=== PATIENT | female | born 1985 | race Caucasian/White ===

== ENCOUNTER 2017-05-01 13:10 | Inpatient (IN) | payer MEDICAID ==
[2017-05-01 13:55] LABS: APPEARANCE,URINE SLIGHTLY-CLOUDY; BILIRUBIN,URINE NEGATIVE (NEGATIVE); GLUCOSE, URINE NEGATIVE (NEGATIVE); KETONES,URINE NEGATIVE (NEGATIVE); LEUKOCYTE ESTERASE,URINE NEGATIVE (NEGATIVE); NITRITE,URINE NEGATIVE (NEGATIVE); PROTEIN,URINE NEGATIVE (NEGATIVE); URINE SPECIFIC GRAVITY 1.011; UROBILINOGEN,URINE NEGATIVE mg/dL (<2.0)
[2017-05-01 14:26] LABS: URINE BARBITURATES SCREEN NEGATIVE; URINE METHADONE SCREEN NEGATIVE; URINE OPIATES LOW NEGATIVE; URINE PHENCYCLIDINE SCREEN NEGATIVE
--- NOTE | 2017-05-01 14:27 | Non Stress Test Report ---
Non Stress Test Datetime Report Generated by CPN: 05/01/2017 14:27 DEMOGRAPHIC EGA NST: 40.1 INDICATION Indication for Study: Ordered by Provider; Other Indication for Study (NST) Other: Labor check, contractions MONITORING Monitor Explained: Monitor Explained; Test Explained; Patient Verbalized Understanding Time on Monitor: 05/01/2017 13:28 Time off Monitor: 05/01/2017 13:56 NST Duration: 28 NST INTERVENTIONS NST Interventions: None Physician Notified NST: Dr. Mayorga BABY A: [id number] BABY A Movement : Present Contraction Frequency : 2-6 FHR Baseline : 125 Accelerations : 15X15 Decelerations : None Variability : Moderate 6-25bpm NST Review: Meets Criteria for Reactive NST NST Review and Verified By : Romaine Ring RN NST Results: Reactive NST REPORT Report Trigger: Send Report
[2017-05-01 15:41] LABS: HEMATOCRIT 35.9 % (36.0-47.0); HEMOGLOBIN 11.9 g/dL (12.0-15.5); HGB HCT DIFFERENCE -0.2; MEAN CORPUSCULAR HGB CONC 33.1 g/dL (32.0-36.0); MEAN CORPUSCULAR VOLUME 88 fl (80-97); RED CELL DISTRIBUTION WIDTH 16.2 % (11.5-14.0); WHITE BLOOD COUNT 20.4 10^3/uL (4.0-10.5)
[2017-05-01 15:57] LABS: BASOPHILS % (MANUAL) 0 % (0-2); EOSINOPHILS % (MANUAL) 0 % (0-6); LYMPHOCYTES % (MANUAL) 22 % (13-45); TOTAL CELLS COUNTED 100
[2017-05-01 15:58] LABS: ANISOCYTOSIS 1+; HYPOCHROMASIA SLIGHT; OVALOCYTES SLIGHT; POIKILOCYTOSIS SLIGHT; TOXIC GRANULATION SLIGHT
[2017-05-01] MEDS ORDERED: MISOPROSTOL 0.2 MG TABLET PR PRN (17:42)
[2017-05-01] MEDS ORDERED: LIDOCAINE 1% INJ-PF (10 MG/ML) 30 ML SDV INJ PRN (17:42)
[2017-05-01] MEDS ORDERED: NALBUPHINE HCL INJ 10 MG/1 ML AMPULE IV ONE (17:42)
[2017-05-01] MEDS ORDERED: OXYTOCIN/NORMAL SALINE 1,000 ML IV PRN (17:42)
[2017-05-01] MEDS ORDERED: MISOPROSTOL 0.2 MG TABLET ONE (17:48)
[2017-05-01] MEDS ORDERED: NALBUPHINE HCL INJ 10 MG/1 ML AMPULE ONE (17:48)
[2017-05-01] MEDS ORDERED: OXYTOCIN/NORMAL SALINE 20 UNIT/1,000 ML RTUINJ ONE (17:49)
[2017-05-01] MEDS ORDERED: LIDOCAINE 1% INJ-PF (10 MG/ML) 30 ML SDV ONE (17:49)
--- NOTE | 2017-05-01 17:50 | L&D Progress Notes ---
PROGRESS NOTES Datetime Report Generated by CPN: 05/01/2017 17:50 PROGRESS NOTE Impression: Normal Progression of Labor Procedures: Sterile Vag Exam Plan: Continue Present Management Informed Consent Obtained: Vaginal Delivery; Risks, Benefits and Alternatives Discussed Vital Signs : Reviewed; Within Normal Limits Comment: Membranes spontaneously ruptured at 1455. Cvx now /-2. Will continue with management currently may need pitocin augmentation if no cervical change on next eval. pelvis adequate for ERMA. pelvis proven to 5#12oz. VAGINAL EXAM Dilatation: 3 Effacement: 70 Station: -3 MEMBRANES Membranes: Ruptured FETUS A FHR - Baseline: 120 Monitoring: External US Variability: Moderate 6-25bpm Accelerations: 15X15 Decelerations: None FHR Category: Category I Presentation: Vertex SIGNATURE SIGNATURE: [id number];[id number] SIGNATURE: [id number] Signature: with User ID: [email or web address]
[2017-05-01] MEDS ORDERED: FENTANYL CITRATE INJ/PF 100 MCG/2 ML AMPUL ONE ×2 (20:07→22:05)
[2017-05-01] MEDS ORDERED: FENTANYL CITRATE INJ/PF 100 MCG/2 ML AMPUL IV ONE (20:09)
[2017-05-01] MEDS ORDERED: EPHEDRINE SULFATE INJ 50 MG/1 ML AMPULE ONE (22:05)
[2017-05-01] MEDS ORDERED: PHENYLEPHRINE HCL INJ/PF 10 MG/1 ML SDV ONE (22:05)
[2017-05-01] MEDS ORDERED: BUPIVACAINE HCL 0.25 % INJ/PF (2.5 MG/1 ML) 30 ML VIAL ONE (22:06)
[2017-05-01] MEDS ORDERED: FENTANYL/BUPIVACAINE/NS/PF 200 MCG/100 ML RTUINJ EPI ONE (22:06)
--- NOTE | 2017-05-01 22:06 | L&D Progress Notes ---
PROGRESS NOTES Datetime Report Generated by CPN: 05/01/2017 22:06 PROGRESS NOTE Impression: Normal Progression of Labor Procedures: Sterile Vag Exam Plan: Continue Present Management; Augmentation Informed Consent Obtained: Vaginal Delivery; Risks, Benefits and Alternatives Discussed Vital Signs : Reviewed; Within Normal Limits Comment: minimal change. reviewed recommendations for pitocin augmentation. She is concerned regarding ctx and pain. Reviewed may give 2nd dose of Nubain but it may not last for long. She would like to try epidural. Will start pitocin after epidural. Pelvis adequate for ERMA VAGINAL EXAM Dilatation: 6 Effacement: 75 Station: 0 MEMBRANES Membranes: Ruptured Amniotic Fluid Color: Clear FETUS A FHR - Baseline: 135 Monitoring: External US Variability: Moderate 6-25bpm Accelerations: 15X15 Decelerations: None FHR Category: Category I FETUS C SIGNATURE: [id number];[id number] Signature: with User ID: [email or web address]
[2017-05-01] MEDS ORDERED: OXYTOCIN/NORMAL SALINE 20 UNIT/1,000 ML RTUINJ IV PRN (23:54)
[2017-05-01] MEDS ORDERED: MAG HYDROX/AL HYDROX/SIMETH SUSP 30 ML UDCUP ONE (23:54)
[2017-05-02] MEDS ORDERED: HYDROMORPHONE HCL INJ/PF 2 MG/ML AMPULE ONE (01:12)
[2017-05-02] MEDS ORDERED: OXYTOCIN 10 UNIT/ML VIAL ONE (01:21)
[2017-05-02] MEDS ORDERED: PROMETHAZINE HCL 25 MG SUPP.RECT PR PRN (02:00)
[2017-05-02] MEDS ORDERED: OXYTOCIN/NORMAL SALINE 20 UNIT/1,000 ML RTUINJ IV PRN (02:00)
[2017-05-02] MEDS ORDERED: DIPHENHYDRAMINE HCL 25 MG CAPSULE PO PRN (02:00)
[2017-05-02] MEDS ORDERED: PROMETHAZINE HCL 25 MG TABLET PO PRN (02:00)
[2017-05-02] MEDS ORDERED: BENZOCAINE/MENTHOL AEROSOL SPRAY 56 ML TOP PRN (02:00)
[2017-05-02] MEDS ORDERED: PROMETHAZINE HCL INJ 25 MG/1 ML VIAL IV PRN (02:00)
[2017-05-02] MEDS ORDERED: ZOLPIDEM TARTRATE 5 MG TABLET PO PRN (02:00)
[2017-05-02] MEDS ORDERED: PSEUDOEPHEDRINE HCL 30 MG TABLET PO PRN (02:00)
[2017-05-02] MEDS ORDERED: ACETAMINOPHEN 650 MG SUPP.RECT PR PRN (02:00)
[2017-05-02] MEDS ORDERED: DIBUCAINE 1% OINTMENT 28 GM TP PRN (02:00)
[2017-05-02] MEDS ORDERED: DIPH/PERTUSS(ACELL)/TETANUS VAC/PF 0.5 ML SYR (>=10YO) IM PRN (02:00)
[2017-05-02] MEDS ORDERED: MEASLES,MUMPS&RUBELLA VACC/PF 0.5 ML VIAL SUBCUT PRN (02:00)
[2017-05-02] MEDS ORDERED: NA PHOS,M-B/NA PHOS,DI-BA (ADULT) 133 ML ENEMA PR PRN (02:00)
[2017-05-02] MEDS ORDERED: GLYCERIN/WITCH HAZEL LEAF 1 EACH MED..PAD TP PRN (02:00)
[2017-05-02] MEDS ORDERED: MAGNESIUM HYDROXIDE SUSP 30 ML UDCUP PO PRN (02:00)
[2017-05-02] MEDS ORDERED: OXYCODONE-ACETAMINOPHEN 5-325 MG TABLET PO PRN ×3 (02:02→07:19)
[2017-05-02] MEDS ORDERED: KETOROLAC TROMETHAMINE INJ/PF 30 MG/1 ML SDV IM ONE (02:05)
[2017-05-02] MEDS ORDERED: KETOROLAC TROMETHAMINE INJ/PF 30 MG/1 ML SDV ONE (02:18)
[2017-05-02] MEDS ORDERED: OXYCODONE-ACETAMINOPHEN 5-325 MG TABLET ONE (02:19)
--- NOTE | 2017-05-02 03:47 | Admission Physical ---
Datetime Report Generated by CPN: 05/02/2017 03:46 CURRENT ADMISSION Chief Complaint: Uterine Contractions Admit Plan: Admit to Unit; Initiate Labor Protocol ALLERGIES Medication Allergies: No Medication Allergies: No Known Allergies (05/01/2017) Medication Allergies: No Known Allergies (07/26/2013) Latex: No Latex Allergies Food Allergies: None Environmental Allergies: None OBSTETRICAL HISTORY EDC: 04/30/2017 00:00 : 4 Para: 2 Term: 2 : 0 SAB: 1 IAB: 0 Ectopic: 0 Livin Cesareans: 0 VBACs: 0 Multiple Births: 0 Gestational Diabetes: No Rh Sensitization: No Incompetent Cervix: No VELIA: No Infertility: No ART Treatment: No Uterine Anomaly: No IUGR: No Hx Previous C/S: No Macrosomia: No Hx Loss/Stillborn: No PIH: No Hx : No Placenta Previa/Abruption: No Depression/PP Depression: No PTL/PROM: No Post Hemorrhage: No Current Procedures: Ultrasound Obstetrical History Comments: G1 - 2010 - at 39wks, 5lbs 11oz G2 2012 - SAB G3 2013 - at 38wks, 5lbs 12oz SEE RECORDS Alcohol: No Marijuana : No Cocaine: No Other Illicit Drugs: No Cigarettes: Current Everyday Smoker. [id number] MEDICAL HISTORY Diabetes: No Blood Transfusion: No Pulmonary Disease (Asthma, TB): No Breast Disease: No Hypertension: No Buckle Sorter Surgery: No Heart Disease: No Hosp/Surgery: No Autoimmune Disorder: No Anesthetic Complications: No Kidney Disease: No Abnormal Pap Smear: No Neuro/Epilepsy: No Psychiatric Disorders: No Other Medical Diseases: No Hepatitis/Liver Disease: No Significant Family History: No Varicosities/Phlebitis: No Trauma/Violence : No Thyroid Dysfunction: No Medical History Comments: Insulin resistance - on Metformin tonsilectomy INFECTIOUS HISTORY Gonorrhea: No Genital Herpes: No Chlamydia: No Tuberculosis: No Syphilis: No Hepatitis: No HIV/AIDS Exposure: No Rash or Viral Illness: No HPV: Yes Infectious History Comments: ACSUS pap +HPV, colpo results negative (Annotations: Data stored by [facility] on behalf of user) PHYSICAL EXAM General: Normal HEENT: Normal Neurologic: Normal Thyroid: Normal Heart: Normal Lungs: Normal Breast: Deferred Back: Normal Abdomen: Normal Genitourinary Exam: Normal Extremities: Normal DTRs: Normal Pelvic Type: Adequate Vital Signs: Reviewed; Within Normal Limits VAGINAL EXAM Dilatation: 6 Dilatation: 3 Effacement: 75 Effacement: 70 Station: 0 Station: -3 MEMBRANES Membranes: Ruptured Membranes: Ruptured Amniotic Fluid Color: Clear FETUS A EGA: 40.1 Monitoring: External US FHR- Baseline: 120 Variability: Moderate 6-25bpm Accelerations: 15X15 Decelerations: None FHR Category: Category I Presentation: Vertex Admit Comment: 31yo at 40+1ega presents for regular uterine ctx. cvx 1cm in office a couple of days ago and now 3-4 with h/o precipitous labor. GBS negative - no need for GBS prophy. Pt with large right ovarian cyst 6.5 x 5.5 x 6.5cm. Pt with Insulin resistance on Metformin - normal GTT early and at 28wks. Anticpate . Pelvis proven to 5#12oz. Augment labor if needed. CAT I FHR tracing and reassuring FWB. PLANS FOR LABOR AND DELIVERY Labor and Delivery: None Pain Management: Natural Feeding Preference: Formula Benefit of Breast Feed Discussed: Yes Circumcision: N/A INFORMED CONSENT Informed Consent Obtained: Vaginal Delivery; Risks, Benefits and Alternatives Discussed Informed Consent Obtained: Vaginal Delivery; Risks, Benefits and Alternatives Discussed Signature: with User ID: [email or web address]
--- NOTE | 2017-05-02 04:02 | Delivery Summary ---
Del Sum A-C Datetime Report Generated by CPN: 05/02/2017 04:02 DELIVERY PERSONNEL DELIVERY PERSONNEL: [id number];[id number];[id number];[id number] Delivery Doctor:: Pearl Mayorga MD Labor and Delivery Nurse:: Raven Calixto, bench mover Nurse:: Ailyn Gan RN Nursery Nurse:: Melissa Ibarra, RN Tree Worker/INSPECTOR METAL FABRICATING: Denise Elmer, ST MATERNAL INFORMATION Delivery Anesthesia: Epidural Medications After Delivery: Pitocin Drip 20 Units/1000ml NSS Maternal Complications: None Provider Comments: Terminal Bradycardia in the 80's. Cervix c/c/+2 and membranes ruptured confirmed. Bladder drained. Epidural confirmed. Pt consented for operative vaginal delivery with forceps. head position confirmed OA. Ayala Leukhart forceps applied in the usual fashion. delivered with next contraction with 2 push/pulls with good maternal effort. forceps disarticulated and c/c/+4 and infant delivered with maternal effort on the last push of the contraction. Shoulders and body delivered w/o difficulty. Cord doubly clamped and cut and to maternal Abdomen for NRP. Placenta delivered intact spontaneously. FF at U with moderate tone. IV infiltrated therefore IM pitocin and 1000mcg of misoprostol given for uterine tone. 1st degree perineal laceration repaired with good hemostasis. Apgars 8/9. Weight pending. Mother and baby stable upon provider leaving the room. LABOR SUMMARY EDC: 04/30/2017 00:00 No. Babies in Womb: 1 Attempted: No Labor Anesthesia: Epidural LABOR INFORMATION Reason for Induction: Not Applicable Onset of Labor: 05/01/2017 17:35 Complete Dilatation: 05/02/2017 00:50 Oxytocin: Augmentation Group B Beta Strep: Negative Steroids Given: None Reason Steroids Not Administered: Not Applicable MEMBRANES Membranes Rupture Method: Spontaneous Rupture of Membranes: 05/01/2017 14:55 Length of Rupture (hr): 10.17 Amniotic Fluid Color: Clear Amniotic Fluid Amount: Moderate Amniotic Fluid Odor: Normal STAGES OF LABOR Stage 1 hr: 7 Stage 1 min: 15 Stage 2 hr: 0 Stage 2 min: 15 Stage 3 hr: 0 Stage 3 min: 3 Total Time in Labor hr: 7 Total Time in Labor min: 33 VAGINAL DELIVERY Episiotomy: None Laceration Extension: First Degree Laceration Type: Perineal Laceration Repair: Yes Laceration Repair Note: 1st degree perineal laceration repaired in the usual fashion. Good hemostasis. Sponge Count Correct: Yes; Vaginal Sweep Performed Sharps Count Correct: Yes CSECTION DELIVERY Primary Indication: N/A Secondary Indication: N/A CSection Incidence: N/A Labor: N/A Elective: N/A CSection Incision: N/A BABY A INFORMATION Infant Delivery Date/Time: 05/02/2017 01:05 Method of Delivery: Vaginal Born in Route : No : N/A Forceps: Low Vacuum Extraction: N/A Shoulder Dystocia : No PRESENTATION/POSITION BABY A Presentation: Cephalic Cephalic Presentation: Vertex Vertex Position: Occipital Anterior Breech Presentation: N/A PLACENTA INFORMATION BABY A Placenta Delivery Time : 05/02/2017 01:08 Placenta Method of Delivery: Spontaneous Placenta Status: Delivered SCORES BABY A Heart Rate 1 min: >100 bpm Resp Effort 1 min: Slow, Irregular Reflex Irritability 1 min: Cough or Sneeze or Pulls Away Muscle Tone 1 min: Active Motion Color 1 min: Body [place], Extremities Blue SCORE 1 MIN: 8 Heart Rate 5 min: >100 bpm Resp Effort 5 min: Good Cry Reflex Irritability 5 min: Cough or Sneeze or Pulls Away Muscle Tone 5 min: Active Motion Color 5 min: Body [place], Extremities Blue SCORE 5 MIN: 9 INFANT INFORMATION BABY A Gestational Age at Delivery: 40.2 Gestational Status: Full Term- 39- 40.6 Weeks Infant Outcome : Liveborn Infant Condition : Stable Sex: Female IDENTIFICATION BABY A Infant Verification Date/Time: 05/02/2017 01:38 ID Band Number: [id number] Mother's Name Verified: Yes Infant RN Verifying : K Durga RN/ C [place] RN WEIGHT/LENGTH BABY A Infant Birthweight (gm): 2850 Weight (lb): 6 Infant Weight (oz): 5 Infant Length (in): 19.00 Infant Length (cm): 48.26 CORD INFORMATION BABY A No. Cord Vessels: 3 Nuchal Cord : N/A Cord Blood Taken: Yes-For Storage (Mom's Blood type +) Suction: Mouth ASSESSMENT BABY A Complications: Extended Bradycardia Physical Findings at Delivery: Within Normal Limits; Puncture Wound from Scalp Electrode Respirations: Appears Normal Skin to Skin: Yes Skin to Skin Time (min): [address] Place Change Roof Bolter/ALS Called : No Infant Care By: L Ibarra RN Transferred To: Remains with Mother SIGNATURES Signature: with User ID: [email or web address]
[2017-05-02] MEDS: IBUPROFEN 800 MG TABLET PO SCH ×3 (05:53→21:21)
[2017-05-02] MEDS: OXYCODONE-ACETAMINOPHEN 5-325 MG TABLET PO PRN ×3 (07:29→17:35)
--- NOTE | 2017-05-02 10:28 | PDOC PROGRESS REPORT ---
Subjective-OB Subjective: Post Delivery Day: 31 year old. Denies any needs at this time Doing well, OOB in room and halls, eating, bottle feeding, wearing bra, scant lochia, hsb in room holding baby Physical Exam (OB) Vital Signs: Temp Pulse Resp BP Pulse Ox 98.2 F 79 20 115/56 L 100 05/02/17 08:18 05/02/17 08:18 05/02/17 08:18 05/02/17 08:18 05/02/17 08:18 Intake & Output 05/01/17 05/02/17 05/03/17 06:59 06:59 06:59 Weight 92.75 kg - Lochia Lochia Amount: Small 10-25 ml Lochia Color: Rubra/Red - Abdomen Description: Soft Hernia Present: No Fundal Description: Firm, Midline Fundal Height: u/u - u/2 Objective-Diagnostic Laboratory: 05/01/17 15:20 05/01/17 05/01/17 05/01/17 13:17 15:20 15:20 WBC 20.4 H RBC 4.10 Hgb 11.9 L Hct 35.9 L MCV 88 MCH 29.0 MCHC 33.1 RDW 16.2 H Plt Count 483 H Seg Neutrophils % Not Reportable Lymphocytes % Not Reportable Monocytes % Not Reportable Eosinophils % Not Reportable Basophils % Not Reportable Absolute Neutrophils Not Reportable Absolute Lymphocytes Not Reportable Absolute Monocytes Not Reportable Absolute Eosinophils Not Reportable Absolute Basophils Not Reportable Urine Color YELLOW Urine Appearance SLIGHTLY-CLOUDY Urine pH 6.0 Ur Specific [place] 1.011 Urine Protein NEGATIVE Urine Glucose (UA) NEGATIVE Urine Ketones NEGATIVE Urine Blood NEGATIVE Urine Nitrite NEGATIVE Ur Leukocyte Esterase NEGATIVE Blood Type O POSITIVE Antibody Screen NEGATIVE Assessment and Plan(PN) - Assessment and Plan (1) Ovarian cyst complicating , delivered, current hospitalization Is this a current diagnosis for this admission?: Yes (3) Qualifiers: Weeks of gestation: 40 weeks Qualified Code(s): Z3A.40 - 40 weeks gestation of Is this a current diagnosis for this admission?: Yes (4) Delivery normal Is this a current diagnosis for this admission?: Yes - Time Spent with Patient Time with patient: Less than 15 minutes Medications reviewed and adjusted accordingly: Yes - Disposition Anticipated Discharge: Home Within: within 48 hours - CBC in AM
[2017-05-02] MEDS: FERROUS SULFATE 325 MG TABLET PO SCH ×2 (11:25→17:35)
[2017-05-02] MEDS: PRENATAL VITAMIN W-O CA NO5/FE FUMARATE/FA CAPSULE PO SCH (11:25)
[2017-05-02] MEDS: FAMOTIDINE 20 MG TABLET PO SCH ×2 (11:26→21:21)
[2017-05-02] MEDS: DOCUSATE SODIUM 100 MG CAPSULE PO SCH ×2 (11:26→17:36)
[2017-05-02] MEDS: SENNOSIDES/DOCUSATE 8.6-50 MG 1 EACH TABLET PO SCH (11:26)
[2017-05-03] MEDS: OXYCODONE-ACETAMINOPHEN 5-325 MG TABLET PO PRN ×3 (04:25→17:56)
[2017-05-03 05:45] LABS: HEMATOCRIT 32.8 % (36.0-47.0); HEMOGLOBIN 10.5 g/dL (12.0-15.5); HGB HCT DIFFERENCE -1.3; MEAN CORPUSCULAR HEMOGLOBIN 28.8 pg (27.0-33.4); MEAN CORPUSCULAR HGB CONC 32.2 g/dL (32.0-36.0); MEAN CORPUSCULAR VOLUME 90 fl (80-97); RED BLOOD COUNT 3.66 10^6/uL (3.72-5.28); RED CELL DISTRIBUTION WIDTH 16.7 % (11.5-14.0); WHITE BLOOD COUNT 15.5 10^3/uL (4.0-10.5)
[2017-05-03] MEDS: IBUPROFEN 800 MG TABLET PO SCH ×3 (06:12→21:10)
[2017-05-03] MEDS: FAMOTIDINE 20 MG TABLET PO SCH ×2 (09:12→21:10)
[2017-05-03] MEDS: PRENATAL VITAMIN W-O CA NO5/FE FUMARATE/FA CAPSULE PO SCH (09:12)
[2017-05-03] MEDS: DOCUSATE SODIUM 100 MG CAPSULE PO SCH ×2 (09:12→17:56)
[2017-05-03] MEDS: SENNOSIDES/DOCUSATE 8.6-50 MG 1 EACH TABLET PO SCH (09:12)
[2017-05-03] MEDS: FERROUS SULFATE 325 MG TABLET PO SCH ×2 (09:12→17:56)
--- NOTE | 2017-05-03 10:33 | PDOC PROGRESS REPORT ---
Subjective-OB Subjective: Post Delivery Day: 31 year old. Denies any needs at this time Physical Exam (OB) Vital Signs: Temp Pulse Resp BP Pulse Ox 98.0 F 88 15 114/48 L 100 05/03/17 08:15 05/03/17 08:15 05/03/17 08:15 05/03/17 08:15 05/03/17 08:15 Intake & Output 05/02/17 05/03/17 05/04/17 06:59 06:59 06:59 Intake Total 400 Balance 400 Weight 92.75 kg - PIH/Pre-Eclampsia Headache: Absent - Lochia Lochia Amount: Small 10-25 ml Lochia Color: Rubra/Red - Abdomen Description: Soft, Round Hernia Present: No Bowel Sounds: Normoactive Flatus Presence: Present Stool: Yes Fundal Description: Firm, Midline Fundal Height: u/u - u/2 Objective-Diagnostic Laboratory: 05/03/17 05:28 05/03/17 05:28 WBC 15.5 H RBC 3.66 L Hgb 10.5 L Hct 32.8 L MCV 90 MCH 28.8 MCHC 32.2 RDW 16.7 H Plt Count 416 Assessment and Plan(PN) - Time Spent with Patient Medications reviewed and adjusted accordingly: Yes - Disposition Anticipated Discharge: Home
[2017-05-04] MEDS: OXYCODONE-ACETAMINOPHEN 5-325 MG TABLET PO PRN ×3 (00:07→09:56)
[2017-05-04] MEDS: IBUPROFEN 800 MG TABLET PO SCH ×2 (05:15→13:14)
[2017-05-04] MEDS: DOCUSATE SODIUM 100 MG CAPSULE PO SCH (09:52)
[2017-05-04] MEDS: FERROUS SULFATE 325 MG TABLET PO SCH (09:52)
[2017-05-04] MEDS: SENNOSIDES/DOCUSATE 8.6-50 MG 1 EACH TABLET PO SCH (09:55)
[2017-05-04] MEDS: FAMOTIDINE 20 MG TABLET PO SCH (09:55)
[2017-05-04] MEDS: PRENATAL VITAMIN W-O CA NO5/FE FUMARATE/FA CAPSULE PO SCH (09:55)
[2017-05-04 12:34] VITALS: BP 115/56
--- NOTE | 2017-05-04 13:46 | PDOC DISCHARGE SUMMARY ---
Final Diagnosis Discharge Date: 05/04/17 - Final Diagnosis (1) Insulin resistance complicating Is this a current diagnosis for this admission?: Yes (2) Delivery normal Is this a current diagnosis for this admission?: Yes Discharge Data - Discharge Medication Home Medications: Vit/Iron Fumarate/FA [ Plus Tablet] 1 tab PO DAILY 07/26/13 Metformin HCl [Glucophage 500 mg Tablet] 1,000 mg PO QHS 05/25/14 Ferrous Sulfate [Iron] 325 mg PO DAILY 05/01/17 Metformin HCl 500 mg PO QAM 05/01/17 Reason(s) for Admission: Onset of Labor Procedures: NST, Ultrasound Intrapartum Procedure(s): Spontaneous Vaginal Delivery Complication(s): Laceration-Perineal Laceration-Degree: 1st - Diagnosis Test Laboratory: Temp Pulse Resp BP Pulse Ox 98.2 F 84 15 115/56 L 99 05/04/17 12:27 05/04/17 12:27 05/04/17 12:27 05/04/17 12:27 05/04/17 12:27 05/01/17 05/01/17 05/03/17 13:17 15:20 05:28 RBC 4.10 3.66 L Hgb 11.9 L 10.5 L Hct 35.9 L 32.8 L Urine Opiates Screen NEGATIVE - Discharge information/Instructions Discharge Activity: Activity As Tolerated, Balance Activity w/Rest, No Lifting Over 10 Pounds, No Lifting/Push/Pulling, Pelvic Rest, Slowly Increase Activity, No tub bath Discharge Diet: Regular Disposition: HOME, SELF-CARE Follow up with: [facility] in: 4
--- NOTE | 2017-05-04 13:49 | PDOC PROGRESS REPORT ---
Subjective-OB Subjective: Post Delivery Day: 31 year old. Denies any needs at this time bottlefeeding ff@u-1 denies abdominal pain requests pain medicine for chronic back pain breast binding discussed pt to follow up with PCM for pain management pt informed only 14 oxycodone rx given precautions reviewed d/c home Physical Exam (OB) Vital Signs: Temp Pulse Resp BP Pulse Ox 98.2 F 84 15 115/56 L 99 05/04/17 12:27 05/04/17 12:27 05/04/17 12:27 05/04/17 12:27 05/04/17 12:27 Intake & Output 05/03/17 05/04/17 05/05/17 06:59 06:59 06:59 Intake Total 400 600 550 Balance 400 600 550 - PIH/Pre-Eclampsia Headache: Absent - Lochia Lochia Amount: Scant < 10 ml Lochia Color: Rubra/Red - Abdomen Description: Soft, Round Hernia Present: No Fundal Description: Firm, Midline Fundal Height: u/u - u/2 Objective-Diagnostic Laboratory: 05/03/17 05:28 Assessment and Plan(PN) - Assessment and Plan (1) Insulin resistance complicating Is this a current diagnosis for this admission?: Yes (2) Delivery normal Is this a current diagnosis for this admission?: Yes - Time Spent with Patient Medications reviewed and adjusted accordingly: Yes - Disposition Anticipated Discharge: Home
== END 2017-05-04 15:05 | disposition home or self-care (01) | DRG 775 ==
LOC: LC 13:10 → LR 15:04 → 2S 05-02 03:45
PROVIDERS: ADMIT Student in an Organized Health Care Education/Training Program; ATTEND Student in an Organized Health Care Education/Training Program
PROC: 10E0XZZ Delivery of Products of Conception, External Approach (ICD-10-PCS; principal; 2017-05-01)
PROC: 0HQ9XZZ Repair Perineum Skin, External Approach (ICD-10-PCS; 2017-05-01)
PROC: 4A1HXCZ Monitoring of Products of Conception, Cardiac Rate, External Approach (ICD-10-PCS; 2017-05-01)
DX: O99.284 Endocrine, nutritional and metabolic diseases complicating childbirth (principal); E88.81 Metabolic syndrome and other insulin resistance; O70.0 First degree perineal laceration during delivery; O99.334 Smoking (tobacco) complicating childbirth; F17.210 Nicotine dependence, cigarettes, uncomplicated; O34.83 Maternal care for other abnormalities of pelvic organs, third trimester; N83.201 Unspecified ovarian cyst, right side; O76 Abnormality in fetal heart rate and rhythm complicating labor and delivery; Z3A.40 40 weeks gestation of pregnancy; Z37.0 Single live birth
CPT/HCPCS: 36415; 80307; 81005; 85025; 85027; 86592; 86850; 86900; 86901; 87070; 87077; 87186; 87205; 88307; J1170; J1885; J2300; J2370; J2590; J3010; J3490

== ENCOUNTER 2018-02-24 14:53 | Emergency (ER) | payer OTHER, MEDICAID ==
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
[2018-02-24 18:13] VITALS: BP 108/60
== END 2018-02-24 18:13 | disposition home or self-care (01) ==
LOC: ER 14:53
DX: O26.92 Pregnancy related conditions, unspecified, second trimester (principal); R10.30 Lower abdominal pain, unspecified; O99.332 Smoking (tobacco) complicating pregnancy, second trimester; V89.2XXA Person injured in unspecified motor-vehicle accident, traffic, initial encounter; Z3A.19 19 weeks gestation of pregnancy; Z98.1 Arthrodesis status
CPT/HCPCS: 76819; 99284

== ENCOUNTER 2018-05-21 00:57 | Emergency (ER) | payer MEDICAID ==
[2018-05-21 01:37] VITALS: BP 108/59
[2018-05-21] MEDS ORDERED: AMOXICILLIN TRIHYDRATE 500 MG CAPSULE PO ONE (01:50)
--- NOTE | 2018-05-21 01:50 | ER Document Report ---
ED ENT - General Chief Complaint: Ear Pain Stated Complaint: SORE THROAT Time Seen by Provider: 05/21/18 01:37 Mode of Arrival: Ambulatory Information source: Patient Notes: Pt is a 33 year old female, who presents to the ER today for sinus congestion worsening x 5 days with cough and bilateral ear pain. She states she hasn't been using anything over the counter because she's . She admits to chills and fatigue since congestion started, no fever that she knows of. Denies sob or wheezing. TRAVEL OUTSIDE OF THE [place] IN LAST 30 DAYS: No - Related Data Allergies/Adverse Reactions: No Known Allergies Allergy (Verified 02/24/18 15:34) Past Medical History - General Information source: Patient - Social History Smoking Status: Never Smoker Family History: Reviewed & Not Pertinent Renal/ Medical History: Denies: Hx Peritoneal Dialysis Past Surgical History: Reports: Hx Orthopedic Surgery - L5 fused to hip bone, Hx Tonsillectomy - Immunizations Immunizations up to date: Yes Hx Diphtheria, Pertussis, Tetanus Vaccination: No Review of Systems - Review of Systems Constitutional: See HPI EENT: See HPI Cardiovascular: No symptoms reported Respiratory: See HPI Gastrointestinal: No symptoms reported Genitourinary: No symptoms reported Female Genitourinary: No symptoms reported Musculoskeletal: No symptoms reported Skin: No symptoms reported Hematologic/Lymphatic: No symptoms reported Neurological/Psychological: No symptoms reported Physical Exam - Vital signs Vitals: Temp Pulse Resp BP Pulse Ox 98.6 F 110 H 18 108/59 L 98 05/21/18 01:31 05/21/18 01:31 05/21/18 01:31 05/21/18 01:31 05/21/18 01:31 - Notes Notes: PHYSICAL EXAMINATION: GENERAL:mildly ill appearing, but in no acute distress. HEAD: Atraumatic, normocephalic. EYES: Pupils equal round and reactive to light, extraocular movements intact, sclera anicteric, conjunctiva are normal. ENT: ear canals without erythema or foreign body, TMs pearly ortiz with good bony landmarks, nares with mucoid discharge, oropharynx erythematous without enlarged tonsils and without exudates. Moist mucous membranes. maxillary sinuses tender to palpation NECK: Normal range of motion, supple without lymphadenopathy LUNGS: CTAB and equal. No wheezes rales or rhonchi. HEART: Regular rate and rhythm without murmurs NEUROLOGICAL: Cranial nerves grossly intact. Normal sensory/motor exams. PSYCH: Normal mood, normal affect. SKIN: Warm, Dry, normal turgor, no rashes or lesions noted Course - Vital Signs Vital signs: Temp Pulse Resp BP Pulse Ox 98.6 F 110 H 18 108/59 L 98 05/21/18 01:31 05/21/18 01:31 05/21/18 01:31 05/21/18 01:05/21/18 01:31 Discharge - Discharge Clinical Impression: Sinusitis Qualifiers: Sinusitis location: frontal Chronicity: acute Recurrence: non-recurrent Qualified Code(s): J01.10 - Acute frontal sinusitis, unspecified Condition: Stable Disposition: HOME, SELF-CARE Additional Instructions: Return immediately for any new or worsening symptoms. Follow up with primary care provider, call tomorrow to make followup appointment. Prescriptions: Amoxicillin 500 mg PO BID #20 capsule Referrals: LUI LUONG MD [Primary Care Provider] - Follow up as needed
== END 2018-05-21 02:04 | disposition home or self-care (01) ==
LOC: ER 00:57
DX: J01.10 Acute frontal sinusitis, unspecified (principal); R09.81 Nasal congestion; R05 Cough; H92.03 Otalgia, bilateral; R53.83 Other fatigue
CPT/HCPCS: 99282

== ENCOUNTER 2018-06-22 00:28 | Outpatient (CLI) | payer MEDICAID ==
[2018-06-22 01:36] LABS: APPEARANCE,URINE SLIGHTLY-CLOUDY; BILIRUBIN,URINE NEGATIVE (NEGATIVE); COLOR,URINE STRAW; GLUCOSE, URINE NEGATIVE (NEGATIVE); KETONES,URINE NEGATIVE (NEGATIVE); LEUKOCYTE ESTERASE,URINE SMALL (NEGATIVE); NITRITE,URINE NEGATIVE (NEGATIVE); PROTEIN,URINE NEGATIVE (NEGATIVE); URINE SPECIFIC GRAVITY 1.004; UROBILINOGEN,URINE NEGATIVE mg/dL (<2.0)
[2018-06-22 01:52] LABS: URINE AMPHETAMINES SCREEN NEGATIVE; URINE BARBITURATES SCREEN NEGATIVE; URINE BENZODIAZEPINES SCREEN NEGATIVE; URINE COCAINE SCREEN NEGATIVE; URINE MARIJUANA (THC) SCREEN NEGATIVE; URINE METHADONE SCREEN NEGATIVE; URINE PHENCYCLIDINE SCREEN NEGATIVE
--- NOTE | 2018-06-22 02:03 | Non Stress Test Report ---
Non Stress Test Datetime Report Generated by CPN: 06/22/2018 02:02 DEMOGRAPHIC Test Number: 1 EGA NST: 36.6 INDICATION Indication for Study: Ordered by Provider URINE RESULTS Urine Protein, NST: Negative Urine Ketones - NST: Negative Urine Glucose - NST: Negative Urine Blood - NST: Negative MONITORING Monitor Explained: Monitor Explained; Test Explained; Patient Verbalized Understanding Time on Monitor: 06/22/2018 00:48 Time off Monitor: 06/22/2018 01:53 NST Duration: 65 NST INTERVENTIONS NST Interventions: PO Hydration; Reposition Patient Physician Notified NST: Dr. Rahman BABY A: [id number] BABY A Movement : Present Contraction Frequency : 5-7 FHR Baseline : 135 Accelerations : 15X15 Decelerations : None Variability : Moderate 6-25bpm NST Review: Meets Criteria for Reactive NST NST Review and Verified By : KWASI Tuttle NST Results: Reactive NST REPORT Report Trigger: Send Report
== END 2018-06-22 02:00 | disposition home or self-care (01) ==
LOC: LC 00:28
PROVIDERS: ATTEND Obstetrics & Gynecology
PROC: 4A1HXCZ Monitoring of Products of Conception, Cardiac Rate, External Approach (ICD-10-PCS; principal; 2018-06-22)
DX: O47.03 False labor before 37 completed weeks of gestation, third trimester (principal); Z3A.36 36 weeks gestation of pregnancy
CPT/HCPCS: 59025; 80307; 81001

== ENCOUNTER 2018-07-14 15:22 | Outpatient (CLI) | payer MEDICAID ==
[~2018-07-14 15:22] MED LIST: OXYTOCIN/NORMAL SALINE 20 UNIT/1,000 ML RTUINJ IV PRN; RINGERS SOLUTION,LACTATED 1,000 ML IV PRN; RINGERS SOLUTION,LACTATED 300 ML IV ONE
[2018-07-14 16:48] LABS: HEMATOCRIT 36.5 % (36.0-47.0); MEAN CORPUSCULAR HEMOGLOBIN 28.2 pg (27.0-33.4); MEAN CORPUSCULAR HGB CONC 32.9 g/dL (32.0-36.0); MEAN CORPUSCULAR VOLUME 86 fl (80-97); PLATELET COUNT 709 10^3/uL (150-450); RED BLOOD COUNT 4.26 10^6/uL (3.72-5.28); RED CELL DISTRIBUTION WIDTH 16.3 % (11.5-14.0); WHITE BLOOD COUNT 20.8 10^3/uL (4.0-10.5)
== END 2018-07-14 18:42 | disposition home or self-care (01) ==
LOC: LC 15:22 → EDSTATUS 18:41 → LC 18:42
PROVIDERS: ATTEND Obstetrics & Gynecology
PROC: 4A1HXCZ Monitoring of Products of Conception, Cardiac Rate, External Approach (ICD-10-PCS; principal; 2018-07-14)
DX: O48.0 Post-term pregnancy (principal); O24.415 Gestational diabetes mellitus in pregnancy, controlled by oral hypoglycemic drugs; O99.333 Smoking (tobacco) complicating pregnancy, third trimester; Z3A.40 40 weeks gestation of pregnancy
CPT/HCPCS: 36415; 59025; 82962; 85027; 86592; 86850; 86900; 86901; 94760

== ENCOUNTER 2018-07-18 11:21 | Inpatient (IN) | payer MEDICAID ==
--- NOTE | 2018-07-18 11:28 | Non Stress Test Report ---
Non Stress Test Datetime Report Generated by CPN: 07/18/2018 11:28 DEMOGRAPHIC EGA NST: 40.0 INDICATION Indication for Study: Ordered by Provider; Other MONITORING Monitor Explained: Monitor Explained; Test Explained; Patient Verbalized Understanding Time on Monitor: 07/14/2018 17:52 Time off Monitor: 07/14/2018 18:33 NST Duration: 41 NST INTERVENTIONS NST Interventions: PO Hydration; IV Fluids; Reposition Patient Physician Notified NST: C. Fowler, CNM BABY A: [id number] BABY A Movement : Present Contraction Frequency : irregular FHR Baseline : 135 Accelerations : 15X15 Decelerations : None Variability : Moderate 6-25bpm NST Review: Meets Criteria for Reactive NST NST Review and Verified By : Jake Lafleuravaricarda RN NST Results: Reactive NST REPORT Report Trigger: Send Report
[2018-07-18 12:46] LABS: APPEARANCE,URINE SLIGHTLY-CLOUDY; BILIRUBIN,URINE NEGATIVE (NEGATIVE); COLOR,URINE YELLOW; GLUCOSE, URINE NEGATIVE (NEGATIVE); KETONES,URINE NEGATIVE (NEGATIVE); NITRITE,URINE NEGATIVE (NEGATIVE); PROTEIN,URINE NEGATIVE (NEGATIVE); URINE SPECIFIC GRAVITY 1.011; UROBILINOGEN,URINE NEGATIVE mg/dL (<2.0)
[2018-07-18 12:47] LABS: LEUKOCYTE ESTERASE,URINE TRACE (NEGATIVE)
[2018-07-18] MEDS ORDERED: CEFAZOLIN 2 GM/D5W RTU 2 GM/50 ML RTUPB IV ONE (13:11)
[2018-07-18] MEDS ORDERED: RINGERS SOLUTION,LACTATED 1,000 ML IV ONE (13:11)
[2018-07-18] MEDS ORDERED: RINGERS SOLUTION,LACTATED 1,000 ML IV PRN (13:11)
[2018-07-18] MEDS ORDERED: TERBUTALINE SULFATE INJ/PF 1 MG/1 ML SDV SUBCUT ONE (13:14)
[2018-07-18 13:16] LABS: URINE AMPHETAMINES SCREEN NEGATIVE; URINE BARBITURATES SCREEN NEGATIVE; URINE BENZODIAZEPINES SCREEN NEGATIVE; URINE COCAINE SCREEN NEGATIVE; URINE MARIJUANA (THC) SCREEN NEGATIVE; URINE METHADONE SCREEN NEGATIVE; URINE PHENCYCLIDINE SCREEN NEGATIVE
[2018-07-18] MEDS ORDERED: EPHEDRINE SULFATE INJ 50 MG/1 ML AMPULE ONE ×2 (13:19→15:02)
[2018-07-18] MEDS ORDERED: TERBUTALINE SULFATE INJ/PF 1 MG/1 ML SDV ONE (13:19)
[2018-07-18] MEDS ORDERED: FENTANYL/BUPIVACAINE/NS/PF 300 MCG/150 ML RTUINJ EPI ONE (13:20)
[2018-07-18] MEDS ORDERED: BUPIVACAINE HCL 0.5 % INJ/PF 30 ML SDV ONE (13:20)
[2018-07-18] MEDS ORDERED: CEFAZOLIN 2 GM/D5W RTU 0 GM/0 ML RTUPB IV ONE (13:20)
[2018-07-18 13:32] LABS: WHITE BLOOD COUNT 19.1 10^3/uL (4.0-10.5)
[2018-07-18 13:33] LABS: HEMATOCRIT 36.2 % (36.0-47.0); HEMOGLOBIN 11.9 g/dL (12.0-15.5); MEAN CORPUSCULAR HEMOGLOBIN 27.7 pg (27.0-33.4); MEAN CORPUSCULAR HGB CONC 32.8 g/dL (32.0-36.0); MEAN CORPUSCULAR VOLUME 84 fl (80-97); PLATELET COUNT 622 10^3/uL (150-450); RED BLOOD COUNT 4.29 10^6/uL (3.72-5.28); RED CELL DISTRIBUTION WIDTH 15.9 % (11.5-14.0)
[2018-07-18 13:34] LABS: ABSOLUTE BASOPHILS # (AUTO) 0.1 10^3/uL (0.0-0.2); ABSOLUTE EOSINOPHILS # (AUTO) 0.2 10^3/uL (0.0-0.6); ABSOLUTE LYMPHOCYTES (AUTO) 3.4 10^3/uL (0.5-4.7); ABSOLUTE MONOCYTES (AUTO) 1.2 10^3/uL (0.1-1.4); ABSOLUTE NEUT (AUTO) 14.2 10^3/uL (1.7-8.2); BASOPHILS % (AUTO) 0.3 % (0-2); EOSINOPHILS % (AUTO) 1.3 % (0-6); LYMPHOCYTES % (AUTO) 17.5 % (13-45); MONOCYTES % (AUTO) 6.5 % (3-13); SEGMENTED NEUTROPHILS % (AUTO) 74.4 % (42-78); TOTAL CELLS COUNTED % (AUTO) 100 %
[2018-07-18] MEDS ORDERED: OXYTOCIN/NORMAL SALINE 20 UNIT/1,000 ML RTUINJ IV PRN (16:36)
[2018-07-18] MEDS ORDERED: LIDOCAINE 1% INJ-PF (10 MG/ML) 30 ML SDV ONE (16:41)
[2018-07-18] MEDS ORDERED: MISOPROSTOL 0.2 MG TABLET ONE (16:41)
[2018-07-18] MEDS ORDERED: OXYTOCIN/NORMAL SALINE 20 UNIT/1,000 ML RTUINJ ONE (16:41)
--- NOTE | 2018-07-18 17:14 | Admission Physical ---
Datetime Report Generated by CPN: 07/18/2018 17:13 CURRENT ADMISSION Hx Assessment: The History has been Reviewed and is Current Chief Complaint: Sent from OB Office for Evaluation and Treatment - Please Specify Indication for Induction: Maternal Diabetes Indication for Induction- Other: breech - needs version Admit Impression : Term, Intrauterine ; No Active Labor; Intact Membranes; Induction of Labor Admit Plan: Initiate Labor Induction Protocol Admit Plan- Other: Needs version versus section ALLERGIES Medication Allergies: No Medication Allergies: No Known Allergies (07/18/2018) Latex: No Latex Allergies Food Allergies: n/a Environmental Allergies: seasonal OBSTETRICAL HISTORY EDC: 07/14/2018 00:00 : 5 Para: 3 Term: 3 : 0 SAB: 1 IAB: 0 Ectopic: 0 Livin Cesareans: 0 VBACs: 0 Multiple Births: 0 Gestational Diabetes: No Rh Sensitization: No Incompetent Cervix: No VELIA: No Infertility: No ART Treatment: No Uterine Anomaly: No IUGR: No Hx Previous C/S: No Macrosomia: No Hx Loss/Stillborn: No PIH: No Hx : No Placenta Previa/Abruption: No Depression/PP Depression: No PTL/PROM: No Post Hemorrhage: No Current Procedures: Ultrasound; NST Obstetrical History Comments: G1- at 39 wks. Baby boy, suction used G2- SAB G3- at 38 wks baby girl G4- at 40 wks baby girl G5- Current on metformin, unstable lie, current smoker SEE RECORDS Alcohol: No Marijuana : No Cocaine: No Other Illicit Drugs: No Cigarettes: Current Everyday Smoker. [id number] Cigarette Frequency: > 10 per day Advised to Stop: No MEDICAL HISTORY Diabetes: No Blood Transfusion: No Pulmonary Disease (Asthma, TB): No Breast Disease: No Hypertension: No Assistant Business Manager Surgery: No Heart Disease: No Hosp/Surgery: Yes Autoimmune Disorder: No Anesthetic Complications: No Kidney Disease: No Abnormal Pap Smear: No Neuro/Epilepsy: No Psychiatric Disorders: No Other Medical Diseases: No Hepatitis/Liver Disease: No Significant Family History: No Varicosities/Phlebitis: No Trauma/Violence : No Thyroid Dysfunction: No Medical History Comments: Mass on lung and kidney, tonsillectomy, childbirth, L5 and hip fusion, insulin resistance INFECTIOUS HISTORY Gonorrhea: No Genital Herpes: No Chlamydia: No Tuberculosis: No Syphilis: No Hepatitis: No HIV/AIDS Exposure: No Rash or Viral Illness: No HPV: No PHYSICAL EXAM General: Normal HEENT: Normal Neurologic: Normal Thyroid: Deferred Heart: Normal Lungs: Normal Breast: Deferred Back: Normal Abdomen: Normal Genitourinary Exam: Normal Extremities: Normal DTRs: Normal Pelvic Type: Adequate Vital Signs: Reviewed VAGINAL EXAM Dilatation: 3 Effacement: 60 Station: -3 Contraction Comments: irreg MEMBRANES Membranes: Intact FETUS A EGA: 40.4 Monitoring: External US FHR- Baseline: 155 Variability: Moderate 6-25bpm Accelerations: 15X15 Decelerations: None FHR Category: Category I Presentation: Vertex Admit Comment: 33yo at 40+4ega presents for evaluation from the office. She is 3-/60/-3 with breech presentation. A2GDM/Insulin Resistance with hb A1c 4.9. Increased risk of DS on AFP but normal informaseq. GBS negative. Reviewed options of section versus ECV and poss . SHe has h/o x 3 with largest baby 5#11oz. Epidural placed and then baby noted to be transverse maternal right. ECV performed easily and AROM performed with light meconium possible. foot/hand near head and esily reduced past head. re-evaluation of cervix with head well applied. Maternal abd binder placed. Anticiapte PLANS FOR LABOR AND DELIVERY Labor and Delivery: None Pain Management: Natural Feeding Preference: Formula Benefit of Breast Feed Discussed: Yes Circumcision: N/A INFORMED CONSENT Informed Consent Obtained: Vaginal Delivery; Induction of Labor; Risks, Benefits and Alternatives Discussed Signature: with User ID: [email or web address]
[2018-07-18] MEDS ORDERED: MAG HYDROX/AL HYDROX/SIMETH SUSP 30 ML UDCUP ONE (18:07)
[2018-07-19] MEDS ORDERED: MAGNESIUM HYDROXIDE SUSP 30 ML UDCUP PO PRN (01:40)
[2018-07-19] MEDS ORDERED: ZOLPIDEM TARTRATE 5 MG TABLET PO PRN (01:40)
[2018-07-19] MEDS ORDERED: ACETAMINOPHEN 325 MG TABLET PO PRN (01:40)
[2018-07-19] MEDS ORDERED: PROMETHAZINE HCL INJ 25 MG/1 ML VIAL IV PRN (01:40)
[2018-07-19] MEDS ORDERED: NA PHOS,M-B/NA PHOS,DI-BA (ADULT) 133 ML ENEMA PR PRN (01:40)
[2018-07-19] MEDS ORDERED: MEASLES,MUMPS&RUBELLA VACC/PF 0.5 ML VIAL SUBCUT PRN (01:40)
[2018-07-19] MEDS ORDERED: DIPH/PERTUSS(ACELL)/TETANUS VAC/PF 0.5 ML SYR (>=10YO) IM PRN (01:40)
[2018-07-19] MEDS ORDERED: BENZOCAINE/MENTHOL AEROSOL SPRAY 56 ML TOP PRN (01:40)
[2018-07-19] MEDS ORDERED: PROMETHAZINE HCL 25 MG SUPP.RECT PR PRN (01:40)
[2018-07-19] MEDS ORDERED: OXYTOCIN/NORMAL SALINE 20 UNIT/1,000 ML RTUINJ IV PRN (01:40)
[2018-07-19] MEDS ORDERED: PROMETHAZINE HCL 25 MG TABLET PO PRN (01:40)
[2018-07-19] MEDS ORDERED: ACETAMINOPHEN WITH CODEINE #3 TABLET PO PRN (01:40)
[2018-07-19] MEDS ORDERED: GLYCERIN/WITCH HAZEL LEAF 1 EACH MED..PAD TP PRN (01:40)
[2018-07-19] MEDS ORDERED: DIBUCAINE 1% OINTMENT 28 GM TP PRN (01:40)
[2018-07-19] MEDS ORDERED: PSEUDOEPHEDRINE HCL 30 MG TABLET PO PRN (01:40)
[2018-07-19] MEDS ORDERED: DIPHENHYDRAMINE HCL 25 MG CAPSULE PO PRN (01:40)
[2018-07-19] MEDS ORDERED: IBUPROFEN 800 MG TABLET ONE (01:46)
[2018-07-19] MEDS ORDERED: ACETAMINOPHEN WITH CODEINE #3 TABLET ONE (02:37)
[2018-07-19] MEDS: ACETAMINOPHEN WITH CODEINE #3 TABLET PO PRN ×2 (02:39→06:42)
--- NOTE | 2018-07-19 03:15 | Delivery Summary ---
Del Sum A-C Datetime Report Generated by CPN: 07/19/2018 03:14 DELIVERY PERSONNEL DELIVERY PERSONNEL: [id number] Delivery Doctor:: Pearl Mayorga MD Anesthesiologist:: David Tello MD Labor and Delivery Nurse:: Jessica Reynaga RNbiology intern Nurse:: Jennifer Velázquez RN Nursery Nurse:: Carol Thomas RN Autocutter/AUTOMATIC OUTSOLE CUTTER: Juan José Steven, AUTOMATIC OUTSOLE CUTTER MATERNAL INFORMATION Delivery Anesthesia: Epidural Medications After Delivery: Pitocin Drip 20 Units/1000ml NSS Maternal Complications: None Provider Comments: VFI delivered in RODOLFO presentation. Tight nuchal cord delivered through. Shoulders and body delivered without difficulty. Cord doubly clamped and cut and infant to maternal abdomen for NRP. Placenta delivered intact spontaneously. FF at U. perineal laceration repaired in usual fashion. Good hemostasis. mother and baby stable upon provider leaving the room. LABOR SUMMARY EDC: 07/14/2018 00:00 No. Babies in Womb: 1 Attempted: No Labor Anesthesia: Epidural LABOR INFORMATION Reason for Induction: Maternal Diabetes; Other Reason for Induction- Other: Unstable Lie-Successful version. Onset of Labor: 07/18/2018 16:26 Complete Dilatation: 07/19/2018 00:49 Oxytocin: Induction Group B Beta Strep: negative Antibiotics # of Doses: 0 Antibiotics Time of Last Dose: N/A Name of Antibiotic Given: N/A Steroids Given: None Reason Steroids Not Administered: Not Applicable MEMBRANES Membranes Rupture Method: Artificial Rupture of Membranes: 07/18/2018 16:26 Length of Rupture (hr): 8.92 Amniotic Fluid Color: Light Meconium Amniotic Fluid Amount: Moderate Amniotic Fluid Odor: Normal STAGES OF LABOR Stage 1 hr: 8 Stage 1 min: 23 Stage 2 hr: 0 Stage 2 min: 32 Stage 3 hr: 0 Stage 3 min: 3 Total Time in Labor hr: 8 Total Time in Labor min: 58 VAGINAL DELIVERY Episiotomy: None Laceration #1: Vaginal Laceration Extension #1: First Degree Laceration Repair: Yes Laceration Repair Note: 1st degree perineal laceration repaired in usual fashion. Good hemostasis Sponge Count Correct: N/A Sharps Count Correct: Yes CSECTION DELIVERY Primary Indication: N/A Secondary Indication: N/A CSection Incidence: N/A Labor: N/A Elective: N/A CSection Incision: N/A BABY A INFORMATION Infant Delivery Date/Time: 07/19/2018 01:21 Method of Delivery: Vaginal Born in Route : No : N/A Forceps: N/A Vacuum Extraction: N/A Shoulder Dystocia : No PRESENTATION/POSITION BABY A Presentation: Cephalic Cephalic Presentation: Vertex Vertex Position: Right Occipital Anterior Breech Presentation: N/A PLACENTA INFORMATION BABY A Placenta Delivery Time : 07/19/2018 01:24 Placenta Method of Delivery: Spontaneous Placenta Status: Delivered SCORES BABY A Heart Rate 1 min: >100 bpm Resp Effort 1 min: Good Cry Reflex Irritability 1 min: Cough or Sneeze or Pulls Away Muscle Tone 1 min: Active Motion Color 1 min: Body Hartman, Extremities Blue Resuscitation Effort 1 min: Tactile Stimulation SCORE 1 MIN: 9 Heart Rate 5 min: >100 bpm Resp Effort 5 min: Good Cry Reflex Irritability 5 min: Cough or Sneeze or Pulls Away Muscle Tone 5 min: Active Motion Color 5 min: Body Hartman, Extremities Blue Resuscitation Effort 5 min: Tactile Stimulation SCORE 5 MIN: 9 INFANT INFORMATION BABY A Gestational Age at Delivery: 40.5 Gestational Status: Full Term- 39- 40.6 Weeks Infant Outcome : Liveborn Infant Condition : Stable Sex: Female IDENTIFICATION BABY A Verification Date/Time: 07/19/2018 01:37 ID Band Number: [id number] Mother's Name Verified: Yes RN Verifying Infant: E. Alexandrolek RN/ S. Lattibeaudeir RN WEIGHT/LENGTH BABY A Birthweight (gm): 2730 Weight (lb): 6 Weight (oz): 0 Length (in): 19.00 Length (cm): 48.26 CORD INFORMATION BABY A No. Cord Vessels: 3 Nuchal Cord : Around Neck x1, Tight Cord Blood Taken: Yes-For Eval (Mom's Blood Type - or O+) ASSESSMENT BABY A Infant Complications: Meconium Physical Findings at Delivery: Molding of the Head; Puncture Wound from Scalp Electrode Respirations: Appears Normal Skin to Skin: Yes Skin to Skin Time (min): 30 Avionics Shop Supervisor/ALS Called : No Care By: RyanSoo Asherm, RN Transferred To: Remains with Mother BABY B INFORMATION : N/A SIGNATURES Signature: with User ID: [email or web address]
[2018-07-19] MEDS: IBUPROFEN 800 MG TABLET PO SCH ×3 (06:41→22:27)
[2018-07-19] MEDS ORDERED: LORATADINE 10 MG TABLET PO SCH ×2 (07:15→08:00)
--- NOTE | 2018-07-19 08:58 | PDOC PROGRESS REPORT ---
Subjective-OB Progress Note for:: 07/19/18 Subjective: Doing well, no c/o, bottle feeding, family in room Physical Exam (OB) Vital Signs: Temp Pulse Resp BP Pulse Ox 98.4 F 106 H 18 109/51 L 98 07/19/18 03:39 07/19/18 03:39 07/19/18 03:39 07/19/18 03:39 07/19/18 03:39 Intake & Output 07/18/18 07/19/18 07/20/18 06:59 06:59 06:59 Weight 99 kg - PIH/Pre-Eclampsia Clonus: Negative - Lochia Lochia Amount: Scant < 10 ml Lochia Color: Rubra/Red - Abdomen Description: Tender, Soft, Round Hernia Present: No Fundal Description: Firm, Midline Fundal Height: u/u - u/2 Objective-Diagnostic Laboratory: 07/18/18 12:48 07/18/18 07/18/18 07/18/18 12:06 12:48 12:48 WBC 19.1 H RBC 4.29 Hgb 11.9 L Hct 36.2 MCV 84 MCH 27.7 MCHC 32.8 RDW 15.9 H Plt Count 622 H Seg Neutrophils % 74.4 Lymphocytes % 17.5 Monocytes % 6.5 Eosinophils % 1.3 Basophils % 0.3 Absolute Neutrophils 14.2 H Absolute Lymphocytes 3.4 Absolute Monocytes 1.2 Absolute Eosinophils 0.2 Absolute Basophils 0.1 Urine Color YELLOW Urine Appearance SLIGHTLY-CLOUDY Urine pH 6.0 Ur Specific [place] 1.011 Urine Protein NEGATIVE Urine Glucose (UA) NEGATIVE Urine Ketones NEGATIVE Urine Blood NEGATIVE Urine Nitrite NEGATIVE Ur Leukocyte Esterase TRACE H Blood Type O POSITIVE Antibody Screen NEGATIVE Assessment and Plan(PN) - Assessment and Plan (1) Obstetrical laceration, first degree Is this a current diagnosis for this admission?: Yes (2) Vaginal delivery Is this a current diagnosis for this admission?: Yes (3) Breech presentation successfully converted, antepartum Qualifiers: Fetus number: single or unspecified fetus Qualified Code(s): O32.1XX0 - Maternal care for breech presentation, not applicable or unspecified Is this a current diagnosis for this admission?: Yes (4) Insulin resistance complicating Is this a current diagnosis for this admission?: Yes - Time Spent with Patient Time with patient: Less than 15 minutes Medications reviewed and adjusted accordingly: Yes - Disposition Anticipated Discharge: Home
[2018-07-19] MEDS ORDERED: PRENATAL VITAMIN W DHA CAPSULE PO SCH (10:00)
[2018-07-19] MEDS ORDERED: SENNOSIDES/DOCUSATE 8.6-50 MG 1 EACH TABLET PO SCH (10:00)
[2018-07-19] MEDS: FAMOTIDINE 20 MG TABLET PO SCH ×2 (10:10→22:27)
[2018-07-19] MEDS: DOCUSATE SODIUM 100 MG CAPSULE PO SCH ×2 (10:10→17:42)
[2018-07-19] MEDS: FERROUS SULFATE 325 MG TABLET PO SCH ×2 (10:11→17:42)
[2018-07-19] MEDS ORDERED: METFORMIN HCL 500 MG TABLET PO SCH ×2 (22:00)
[2018-07-20] MEDS: IBUPROFEN 800 MG TABLET PO SCH (05:01)
[2018-07-20 06:30] LABS: HEMATOCRIT 31.9 % (36.0-47.0); HEMOGLOBIN 10.2 g/dL (12.0-15.5); MEAN CORPUSCULAR HEMOGLOBIN 27.6 pg (27.0-33.4); MEAN CORPUSCULAR HGB CONC 31.9 g/dL (32.0-36.0); MEAN CORPUSCULAR VOLUME 87 fl (80-97); PLATELET COUNT 486 10^3/uL (150-450); RED BLOOD COUNT 3.69 10^6/uL (3.72-5.28); RED CELL DISTRIBUTION WIDTH 16.3 % (11.5-14.0); WHITE BLOOD COUNT 18.7 10^3/uL (4.0-10.5)
--- NOTE | 2018-07-20 09:22 | PDOC DISCHARGE SUMMARY ---
Final Diagnosis Discharge Date: 07/20/18 - Final Diagnosis (1) Breech presentation successfully converted, antepartum Is this a current diagnosis for this admission?: Yes (2) Obstetrical laceration, first degree Is this a current diagnosis for this admission?: Yes (3) Vaginal delivery Is this a current diagnosis for this admission?: Yes (4) Insulin resistance complicating Is this a current diagnosis for this admission?: Yes Discharge Data - Discharge Medication Home Medications: Vit/Iron Fumarate/FA [ Plus Tablet] 1 tab PO DAILY 07/26/13 Metformin HCl [Glucophage 500 mg Tablet] 1,000 mg PO QHS 05/25/14 Ranitidine HCl [Zantac] 150 mg PO DAILY 07/14/18 Loratadine [Claritin] 10 mg PO DAILY 07/19/18 Reason(s) for Admission: Induction of Labor, Other Admission Note: ECV done Procedures: NST, Management of Obstetric Complications, Other Intrapartum Procedure(s): Spontaneous Vaginal Delivery Complication(s): Laceration-Perineal Laceration-Degree: 1st - Diagnosis Test Laboratory: Temp Pulse Resp BP Pulse Ox 98.1 F 90 18 111/63 99 07/20/18 07:58 07/20/18 07:58 07/20/18 07:58 07/19/18 20:24 07/20/18 07:58 07/18/18 07/18/18 07/20/18 12:06 12:48 06:12 RBC 4.29 3.69 L Hgb 11.9 L 10.2 L Hct 36.2 31.9 L Urine Opiates Screen NEGATIVE - Discharge information/Instructions Discharge Activity: Activity As Tolerated, Pelvic Rest, No tub bath Discharge Diet: Regular Disposition: HOME, SELF-CARE [facility] with: [facility] in: 3, Weeks
[2018-07-20 10:13] VITALS: BP 124/64
== END 2018-07-20 10:10 | disposition home or self-care (01) | DRG 775 ==
LOC: LC 11:21 → LR 13:36 → 2S 07-19 03:21
PROVIDERS: ADMIT Student in an Organized Health Care Education/Training Program; ATTEND Student in an Organized Health Care Education/Training Program
PROC: 10S0XZZ Reposition Products of Conception, External Approach (ICD-10-PCS; 2018-07-18)
PROC: 3E033VJ Introduction of Other Hormone into Peripheral Vein, Percutaneous Approach (ICD-10-PCS; 2018-07-18)
PROC: 10907ZC Drainage of Amniotic Fluid, Therapeutic from Products of Conception, Via Natural or Artificial Opening (ICD-10-PCS; 2018-07-18)
PROC: 4A1HXCZ Monitoring of Products of Conception, Cardiac Rate, External Approach (ICD-10-PCS; 2018-07-18)
PROC: 10E0XZZ Delivery of Products of Conception, External Approach (ICD-10-PCS; principal; 2018-07-19)
PROC: 0HQ9XZZ Repair Perineum Skin, External Approach (ICD-10-PCS; 2018-07-19)
DX: O32.1XX0 Maternal care for breech presentation, not applicable or unspecified (principal); O70.0 First degree perineal laceration during delivery; E88.81 Metabolic syndrome and other insulin resistance; O32.0XX0 Maternal care for unstable lie, not applicable or unspecified; O99.334 Smoking (tobacco) complicating childbirth; F17.210 Nicotine dependence, cigarettes, uncomplicated; O24.429 Gestational diabetes mellitus in childbirth, unspecified control; O69.1XX0 Labor and delivery complicated by cord around neck, with compression, not applicable or unspecified; O77.0 Labor and delivery complicated by meconium in amniotic fluid; Z3A.40 40 weeks gestation of pregnancy; Z37.0 Single live birth
CPT/HCPCS: 36415; 80307; 81005; 85025; 85027; 86592; 86850; 86900; 86901; 94760; J0690; J2590; J3010; J3105; J3490

== ENCOUNTER 2018-08-04 12:38 | Emergency (ER) | payer MEDICAID ==
--- NOTE | 2018-08-04 14:42 | ER Document Report ---
ED Extremity Problem, Lower - General Chief Complaint: Leg Pain Stated Complaint: LEFT LEG PAIN Time Seen by Provider: 08/04/18 14:39 Mode of Arrival: Ambulatory Information source: Patient Notes: Chief complaint: Left leg swelling History of complain:( obtained from----patient) 33 years old female 2 weeks presents today with left calf and left leg swelling no pain. No difficulty in breathing no other constitutional symptoms. Onset: Gradual Duration: Last 2-3 days Severity: Mild Quality: Burning sensation Context: Exacerbating factor and relieving factors: None REVIEW OF SYSTEMS: CONSTITUTIONAL : Denies fever, chills, or sweats. Denies recent illness. EENT: Denies eye, ear, throat, or mouth pain or symptoms. Denies nasal or sinus congestion or discharge. Denies throat, tongue, or mouth swelling or difficulty swallowing. CARDIOVASCULAR: Denies chest pain. Denies palpitations or racing or irregular heart beat. Denies ankle edema. RESPIRATORY: Denies cough, cold, or chest congestion. Denies shortness of breath, difficulty breathing, or wheezing. GASTROINTESTINAL: Denies distention. Denies nausea, vomiting, or diarrhea. Denies blood in vomitus, stools, or per rectum. Denies black, tarry stools. Denies constipation. GENITOURINARY: Denies difficulty urinating, painful urination, burning, frequency, blood in urine, or discharge. FEMALE GENITOURINARY: Denies vaginal bleeding, heavy or abnormal periods, irregular periods. Denies vaginal discharge or odor. MUSCULOSKELETAL: Denies back or neck pain or stiffness. Denies joint pain or swelling. SKIN: Denies rash, lesions or sores. HEMATOLOGIC : Denies easy bruising or bleeding. LYMPHATIC: Denies swollen, enlarged glands. NEUROLOGICAL: Denies confusion or altered mental status. Denies passing out or loss of consciousness. Denies dizziness or lightheadedness. Denies headache. Denies weakness or paralysis or loss of use of either side. Denies problems with gait or speech. Denies sensory loss, numbness, or tingling. Denies seizures. PSYCHIATRIC: Denies anxiety or stress. Denies depression, suicidal ideation, or homicidal ideation. ALL OTHER SYSTEMS REVIEWED AND NEGATIVE. PHYSICAL EXAMINATION: GENERAL: Well-appearing, well-nourished and in no acute distress. HEAD: Atraumatic, normocephalic. EYES: Pupils equal round and reactive to light, extraocular movements intact, conjunctiva are normal. ENT: Nares patent, oropharynx clear without exudates. Moist mucous membranes. NECK: Normal range of motion, supple without lymphadenopathy LUNGS: Breath sounds clear to auscultation bilaterally and equal. No wheezes rales or rhonchi. HEART: Regular rate and rhythm without murmurs ABDOMEN: Soft, nontender, nondistended abdomen. No guarding, no rebound. No masses appreciated. Examination of genitals-deferred Musculoskeletal: Normal range of motion, no pitting or edema. No cyanosis. Left calf is larger than the right but no tenderness or palpable cord. Neurovascular function distally within normal limit NEUROLOGICAL: Cranial nerves grossly intact. Normal speech, normal gait. Normal sensory, motor exams PSYCH: Normal mood, normal affect. SKIN: Warm, Dry, normal turgor, no rashes or lesions noted. Dictation was performed using [employer] voice recognition software TRAVEL OUTSIDE OF THE [place] IN LAST 30 DAYS: No - HPI Notes: Dictated - Related Data Allergies/Adverse Reactions: No Known Allergies Allergy (Verified 08/04/18 12:40) Past Medical History - Social History Smoking Status: Current Every Day Smoker Chew tobacco use (# tins/day): No Frequency of alcohol use: None Drug Abuse: None Lives with: Family Family History: Reviewed & Not Pertinent Patient has suicidal ideation: No Patient has homicidal ideation: No Renal/ Medical History: Denies: Hx Peritoneal Dialysis Past Surgical History: Reports: Hx Orthopedic Surgery - L5 fused to hip bone, Hx Tonsillectomy - Immunizations Immunizations up to date: Yes Hx Diphtheria, Pertussis, Tetanus Vaccination: No Review of Systems - Review of Systems Notes: Dictated Physical Exam - Vital signs Vitals: Temp Pulse Resp BP Pulse Ox 98.2 F 93 16 115/73 99 08/04/18 12:52 08/04/18 12:52 08/04/18 12:52 08/04/18 12:52 08/04/18 12:52 - Notes Notes: Dictated Course - Vital Signs Vital signs: Temp Pulse Resp BP Pulse Ox 98.2 F 93 16 115/73 99 08/04/18 12:52 08/04/18 12:52 08/04/18 12:52 08/04/18 12:52 08/04/18 12:52 - Diagnostic Test Radiology reviewed: Reports reviewed - Ultrasound reported as negative for DVT Discharge - Discharge Clinical Impression: Left leg swelling Condition: Fair Instructions: Leg Pain Nonspecific ([facility]) Referrals: DOMINIQUE GUERRA MD [Primary Care Provider] - Follow up as needed
[2018-08-04 17:19] VITALS: BP 128/61
--- NOTE | 2018-08-05 09:50 | XCELERA REPORT ---
[address] [facility] [address] Lower Extremity Venous Evaluation Procedure: Color flow and duplex imaging of the veins of the left lower extremity as well as the right Common Femoral vein. Right Sided Venous Evaluation The right common femoral vein is fully compressible. Spontaneous and phasic flow is present in the right common femoral vein. Left Sided Venous Evaluation Normal vessel filling wall to wall, compression and augmentation as well as Colour flow down to the infrageniculate veins. Interpretation Summary No duplex evidence of DVT or obstruction in the left lower extremity nor in the right Common Femoral vein. Name: LEX DOTSON Age: 33 yrs Gender: Female : 1985 Patient Status: Emergency Patient Location: ER Study Date: 08/04/2018 04:29 PM Reason For Study: Deep vein thrombosis Ordering Physician: RAFAEL MICHEL Performed By: Ashley Bennett : RAFAEL MICHEL > Terrance Alicia
== END 2018-08-04 17:21 | disposition home or self-care (01) ==
LOC: ER 12:38
DX: O90.89 Other complications of the puerperium, not elsewhere classified (principal); M79.89 Other specified soft tissue disorders; M79.605 Pain in left leg
CPT/HCPCS: 93971; 99283

== ENCOUNTER 2019-04-24 09:44 | Emergency (ER) | payer SELFPAY ==
[2019-04-24] MEDS ORDERED: ONDANSETRON 4 MG TAB.RAPDIS PO ONE (10:05)
--- NOTE | 2019-04-24 10:09 | ER Document Report ---
ED Medical Screen (RME) - General Chief Complaint: Nausea/Vomiting/Diarrhea Stated Complaint: DIARRHEA Time Seen by Provider: 04/24/19 10:01 Primary Care Provider: DOMINIQUE GUERRA MD [Primary Care Provider] - Follow up as needed TRAVEL OUTSIDE OF THE [place] IN LAST 30 DAYS: No - HPI Notes: 04/24/19 10:06 Patient is a 33-year-old female with no significant past medical history who presents complaining of intermittent nausea and vomiting over the past couple months with watery diarrhea constantly over the past month. Patient states that she has not been on antibiotics or traveling outside the country. Her last episode of vomiting was at 3 AM today. Patient states that she is otherwise been able to eat and drink without difficulty. She is urinating normally. She has not had any vaginal discharge, odor, or bleeding. Patient does note a possible abscess/infection to her abdominal wall that is been present for a few days and is painful to touch as well as red. Denies drug allergies. Patient does report being told that she may have masses in her lungs and on her kidneys from CT imaging 2 years ago at another facility. Patient has not been able to follow-up for any of that as she was told to follow-up in 1 year due to losing insurance. She does have a chronic intermittent dry cough from tobacco abuse. Denies WERNER, fever, neck pain, URI, CP, SOB, Abd pain, dysuria, or rash. I have treated and performed a rapid initial assessment of this patient. A comprehensive ED assessment and evaluation of the patient, analysis of test results and completion of medical decision making process will be conducted by additional ED providers. PHYSICAL EXAMINATION: GENERAL: Well-appearing, well-nourished and in no acute distress. A&Ox4. Answers questions appropriately. LUNGS: Breath sounds clear to auscultation bilaterally and equal. No wheezes rales or rhonchi. HEART: Regular rate and rhythm without murmurs, rubs, gallops. ABDOMEN: Soft, nondistended abdomen. No guarding, no rebound. Normal bowel sounds present. No CVA tenderness bilaterally. grossly non-tender (cannot elicit thorough abd exam w/o bed, however) and not including the skin as noted below- Skin: + erythemic area to the lower left abd wall that is tender and warm. - Related Data Allergies/Adverse Reactions: No Known Allergies Allergy (Verified 04/24/19 09:48) Past Medical History Renal/ Medical History: Denies: Hx Peritoneal Dialysis Past Surgical History: Reports: Hx Orthopedic Surgery - L5 fused to hip bone, Hx Tonsillectomy - Immunizations Immunizations up to date: Yes Hx Diphtheria, Pertussis, Tetanus Vaccination: No Physical Exam - Vital signs Vitals: Temp Pulse Resp BP Pulse Ox 98.6 F 108 H 18 131/74 H 98 04/24/19 09:49 04/24/19 09:49 04/24/19 09:49 04/24/19 09:49 04/24/19 09:49 Course - Vital Signs Vital signs: Temp Pulse Resp BP Pulse Ox 98.6 F 108 H 18 131/74 H 98 04/24/19 09:49 04/24/19 09:49 04/24/19 09:49 04/24/19 09:49 04/24/19 09:49 Doctor's Discharge - Discharge Referrals: DOMINIQUE GUERRA MD [Primary Care Provider] - Follow up as needed
[2019-04-24 10:37] LABS: ABSOLUTE EOSINOPHILS # (AUTO) 0.1 10^3/uL (0.0-0.6); ABSOLUTE LYMPHOCYTES (AUTO) 1.6 10^3/uL (0.5-4.7); ABSOLUTE MONOCYTES (AUTO) 0.6 10^3/uL (0.1-1.4); ABSOLUTE NEUT (AUTO) 7.9 10^3/uL (1.7-8.2); BASOPHILS % (AUTO) 0.3 % (0-2); EOSINOPHILS % (AUTO) 1.1 % (0-6); HEMATOCRIT 51.8 % (36.0-47.0); HEMOGLOBIN 16.7 g/dL (12.0-15.5); LYMPHOCYTES % (AUTO) 15.4 % (13-45); MEAN CORPUSCULAR HEMOGLOBIN 25.1 pg (27.0-33.4); MEAN CORPUSCULAR HGB CONC 32.2 g/dL (32.0-36.0); MEAN CORPUSCULAR VOLUME 78 fl (80-97); PLATELET COUNT 478 10^3/uL (150-450); RED BLOOD COUNT 6.64 10^6/uL (3.72-5.28); RED CELL DISTRIBUTION WIDTH 17.8 % (11.5-14.0); SEGMENTED NEUTROPHILS % (AUTO) 77.2 % (42-78); TOTAL CELLS COUNTED % (AUTO) 100 %; WHITE BLOOD COUNT 10.3 10^3/uL (4.0-10.5)
[2019-04-24 10:39] LABS: APPEARANCE,URINE CLEAR; BILIRUBIN,URINE NEGATIVE (NEGATIVE); COLOR,URINE STRAW; GLUCOSE, URINE NEGATIVE (NEGATIVE); KETONES,URINE NEGATIVE (NEGATIVE); LEUKOCYTE ESTERASE,URINE NEGATIVE (NEGATIVE); NITRITE,URINE NEGATIVE (NEGATIVE); PROTEIN,URINE NEGATIVE (NEGATIVE); URINE SPECIFIC GRAVITY 1.001; UROBILINOGEN,URINE NEGATIVE mg/dL (<2.0)
[2019-04-24 10:57] LABS: ALANINE AMINOTRANSFERASE 19 U/L (9-52); ALBUMIN 4.3 g/dL (3.5-5.0); ALKALINE PHOSPHATASE 49 U/L (38-126); ANION GAP 10 (5-19); ASPARTATE AMINO TRANSFERASE 15 U/L (14-36); BILIRUBIN,DIRECT 0.2 mg/dL (0.0-0.4); BILIRUBIN,TOTAL 0.7 mg/dL (0.2-1.3); BLOOD UREA NITROGEN 4 mg/dL (7-20); CALCIUM 9.2 mg/dL (8.4-10.2); CARBON DIOXIDE 26 mmol/L (22-30); CHLORIDE 103 mmol/L (98-107); GLUCOSE 77 mg/dL (75-110); LIPASE 92.8 U/L (23-300); POTASSIUM 4.3 mmol/L (3.6-5.0); SODIUM 138.5 mmol/L (137-145)
--- NOTE | 2019-04-24 11:32 | RADIOLOGY REPORT (SQ) ---
EXAM DESCRIPTION: CHEST 2 VIEWS COMPLETED DATE/TIME: 04/24/2019 11:01 am REASON FOR STUDY: cough COMPARISON: None. TECHNIQUE: Frontal and lateral radiographic views of the chest acquired. NUMBER OF VIEWS: Two view. LIMITATIONS: None. FINDINGS: LUNGS AND PLEURA: No opacities, masses or pneumothorax. No pleural effusion. MEDIASTINUM AND HILAR STRUCTURES: No masses or contour abnormalities. HEART AND VASCULAR STRUCTURES: Heart normal size. No evidence for failure. BONES: No acute findings. HARDWARE: None in the chest. OTHER: No other significant finding. IMPRESSION: NO SIGNIFICANT RADIOGRAPHIC FINDING IN THE CHEST. TECHNICAL DOCUMENTATION: JOB ID: [id number] [employer]- All Rights Reserved Reading location - IP/workstation name: [email or web address]
--- NOTE | 2019-04-24 12:54 | ER Document Report ---
ED GI/ - General Chief Complaint: Nausea/Vomiting/Diarrhea Stated Complaint: DIARRHEA Time Seen by Provider: 04/24/19 10:01 Primary Care Provider: DOMINIQUE GUERRA MD [ACTIVE STAFF] - Follow up as needed Cannot obtain history due to: Altered mental status Notes: Patient says that she has been having diarrhea every day for the past month. She has about 3-4 loose stools a day. Has not seen any blood present. She says that it is worsened whenever she eats. Has not had any fever. No UTI symptoms. No abdominal surgeries. Father has IBS. Patient has never been told she has IBS. History of NIDDM. Patient also has a red area in the left lower quadrant of her abdominal skin. She says that she has had many of these in the past. They all eventually go away she has not been picking at it with any instruments. Has not drained. Tender and swollen, but no other findings there. TRAVEL OUTSIDE OF THE [place] IN LAST 30 DAYS: No - Related Data Allergies/Adverse Reactions: No Known Allergies Allergy (Verified 04/24/19 09:48) Past Medical History - Social History Smoking Status: Current Every Day Smoker Chew tobacco use (# tins/day): No Frequency of alcohol use: Occasional Drug Abuse: None Family History: Reviewed & Not Pertinent Patient has suicidal ideation: No Patient has homicidal ideation: No Endocrine Medical History: Reports: Hx Diabetes Mellitus Type 2 Past Surgical History: Reports: Hx Orthopedic Surgery - L5 fused to hip bone, Hx Tonsillectomy - Immunizations Immunizations up to date: Yes Hx Diphtheria, Pertussis, Tetanus Vaccination: No Review of Systems - Review of Systems Notes: REVIEW OF SYSTEMS: CONSTITUTIONAL : Denies fever. EENT: Denies eye, ear, nose or mouth or throat pain or other symptoms. CARDIOVASCULAR: Denies chest pain. RESPIRATORY: Denies cough, chest congestion, or shortness of breath. GASTROINTESTINAL: Denies abdominal pain or nausea, vomiting, or diarrhea. GENITOURINARY: Denies difficulty or painful urinating, urinary frequency, blood in urine. MUSCULOSKELETAL: Denies back or neck pain. Denies joint pain or swelling. SKIN: Denies rash or skin lesions. NEUROLOGICAL: Denies LOC or altered mental status. Denies headache. Denies sensory loss or motor deficits. ALL OTHER SYSTEMS REVIEWED AND NEGATIVE. Physical Exam - Vital signs Vitals: Temp Pulse Resp BP Pulse Ox 98.6 F 108 H 18 131/74 H 98 04/24/19 09:49 04/24/19 09:49 04/24/19 09:49 04/24/19 09:49 04/24/19 09:49 Interpretation: Normal Notes: PHYSICAL EXAMINATION: GENERAL: Well-appearing, in no acute distress. HEAD: Atraumatic, normocephalic. EYES: Pupils equal round and reactive to light, extraocular movements intact. ENT: oropharynx clear without exudates. Moist mucous membranes. NECK: Normal range of motion, supple. LUNGS: Breath sounds clear and equal bilaterally. HEART: Regular rate and rhythm without murmurs. ABDOMEN: Soft, nontender. No guarding or rebound. No masses. BACK: No tenderness throughout entire back. EXTREMITIES: Normal range of motion without pain. NEUROLOGICAL: Normal speech, normal gait. Normal sensory, motor, and reflex exams. Awake, alert, and oriented x3. Cranial nerves normal. PSYCH: Normal mood, normal affect. SKIN: Warm, dry, no rashes. In the left lower quadrant, patient has an erythematous area about 2 to 3 inches diameter with a superficial area of denuding in the center this area is about 1 cm diameter. Could be a hair follicle its infected or embedded. Does not feel like any fluid present. Does not feel hard like a tense abscess. Patient says she has these frequently and they will go away on their own. Because of the patient's problem with diarrhea, I am going to avoid any antibiotics at this time. Course - Re-evaluation Re-evalutation: 04/24/19 18:29 Patient's hemoglobin and hematocrit are elevated. I told the patient is could be due to the extensive diarrhea she is having and she could be dehydrated, although other clinical lab markers do not suggest significant dehydration. Patient does smoke at least a pack of cigarettes a day and I went through explained to her how that can cause her hemoglobin and hematocrit to compensate and be higher. Told her that to considerable strain on her heart and advised her strongly to stop smoking. Patient was not able to provide us with a stool specimen so I wrote her an order for an outpatient stool culture and C. difficile PCR. Advised patient to take a specimen to the lab and call me the next day so I can check the results. Given my home and cell phone numbers. - Vital Signs Vital signs: Temp Pulse Resp BP Pulse Ox 98.2 F 95 16 110/69 97 04/24/19 13:09 04/24/19 13:09 04/24/19 13:09 04/24/19 13:09 04/24/19 13:09 - Laboratory Result Diagrams: 04/24/19 10:17 04/24/19 10:17 Laboratory results interpreted by me: 04/24/19 04/24/19 04/24/19 10:17 10:17 10:17 RBC 6.64 H Hgb 16.7 H Hct 51.8 H MCV 78 L MCH 25.1 L RDW 17.8 H Plt Count 478 H BUN 4 L Urine Blood SMALL H Discharge - Discharge Clinical Impression: Diarrhea, Hair follicle infection Condition: Stable Disposition: HOME, SELF-CARE Additional Instructions: Diarrhea Diarrhea means frequent, watery stools. There are many causes. Any problem that keeps the intestinal tract from absorbing water from the stool can lead to diarrhea. A sudden new diarrhea problem is usually caused by a virus, food sensitivity, toxic bacteria, or drugs. In this case, we expect the problem to go away soon. Testing is done only if you seem seriously ill from the diarrhea. If you have chronic diarrhea, or diarrhea that keeps coming back, we need to find out why. Chronic diarrhea can be due to inflammation of the bowels such as Crohn's disease or ulcerative colitis, food sensitivity such as intolerance to lactose or wheat protein, irritable bowel syndrome, and other problems. If your diarrhea is a significant problem but it's not clear why you have it, we'll refer you to a specialist for further testing. During an episode of diarrhea, drink small amounts (two to six ounces) of clear liquids (soft drinks, sport drinks, herb teas, broth, etc). Take fluids frequently to prevent dehydration. It's usually not a problem to take mild anti- diarrhea medication such as Kaopectate or Pepto-Bismol. As the diarrhea eases, advance to small amounts of bland food (mashed potato, toast) for 24 hours. Call the physician if blood appears in your vomit or stool, if vomiting lasts longer than 24 hours, if the abdominal pain worsens or becomes localized to one area, if you develop high fever, or if you become lightheaded and weak. Polycythemia We have found a higher than normal count of red blood cells. When the blood is thick with extra red cells, we call it "polycythemia." Blood cells are created in your bone marrow. In polycythemia, the marrow is over-active, making extra blood cells. Polycythemia can be a reaction to low oxygen in your blood, as occurs with chronic bronchitis or sleep apnea. Sometimes no clear cause is found. Polycythemia can be dangerous, because the thickened blood clots more eas fareed. There's a higher risk of stroke, heart attack, and blood clots. The best treatment for polycythemia is to treat the underlying cause. For example, treating lung disease to increase the blood oxygen may lower the count of red blood cells. If it's not possible to eliminate the cause of polycythemia, you may be treated by removing some of your blood from time to time. This lowers the count of red cells and makes the blood thinner. Call your doctor or return if you have chest pain or new shortness of breath, or symptoms of a stroke such as memory problems, severe headache, vomiting, severe dizziness, weakness or numbness, double vision, a seizure, or problems with balance or coordination. Stop Smoking You should stop smoking. The tar and chemicals in cigarette smoke are harmful. Smoking has been shown to cause: Emphysema and chronic bronchitis Lung cancer Cancer of the mouth, larynx, stomach, and pancreas Heart disease and stroke Stillbirths and miscarriage Premature aging In addition, smoking increases the chances of respiratory infections and ear infections in children of smokers, and increases the risk of cancer in persons exposed to second-hand smoke. Classes are available to help you stop smoking. If you are serious about wanting to quit, we can help arrange this therapy for you, or you can contact the local lung or cancer association. I recommend a follow-up with a machine filler servicer. You probably need further testing such as with a colonoscopy, etc. You have an infected hair follicle called folliculitis You have a skin infection called folliculitis. This occurs when bacteria infect the hair follicles of the skin. Typically, redness and small pustules are found where hair shafts enter the skin. Allergy, surface irritation, shaving, and exposure to hot tubs predispose to folliculitis. The usual treatment is antibiotic ointment, sometimes combined with cortisone-type medication. Warm compresses are often used. If the infection has moved deeper into the skin, oral antibiotics may be necessary. To avoid future episodes of folliculitis, you must identify (if possible) the factors which allowed this infection to start. If you develop increasing pain, swelling, fever, or red streaks, call the doctor or return for re-evaluation. I do not think you need antibiotics for this lesion at this time. I would wash the area with firmly with soap and water at least 4 times a day and leave it open to the air as much as you can. Return if it swells much more and begins draining, etc. Forms: Follow-Up Laboratory Testing, Return to Work Referrals: DOMINIQUE GUERRA MD [ACTIVE STAFF] - Follow up as needed
[2019-04-24 13:12] VITALS: BP 110/69
== END 2019-04-24 13:12 | disposition home or self-care (01) ==
LOC: ER 09:44
DX: R19.7 Diarrhea, unspecified (principal); L73.8 Other specified follicular disorders; R11.2 Nausea with vomiting, unspecified; F17.210 Nicotine dependence, cigarettes, uncomplicated; E11.9 Type 2 diabetes mellitus without complications; Z98.1 Arthrodesis status
CPT/HCPCS: 99284; 36415; 83690; 85025; 81025; 80053; 81001; 71046; S0119

== ENCOUNTER → 2020-03-26 | Outpatient (CLI) | payer SELFPAY ==
--- NOTE | 2020-03-26 13:43 | ER RDC ASSESSMENT REPORT ---
Intake - In the Last 14 days Have you traveled outside [place]?: No Have you been in close contact with someone CONFIRMED: No Worked in Healthcare?: No - Symptoms Subjective Fever([place] feverish): Yes Chills: Yes Muscule Aches: Yes Runny Nose: Yes Sore Throat: No --How many day(s)?: Throat scratchy just from coughing Cough (New or worsening chronic cough): Yes --How many day(s)?: Has been coughing since february Shortness of breath: Yes Nausea or Vomiting: No Headache: No Abdominal Pain: No Diarrhea(3 or more loose stools in last 24 hours): Yes - Do you have any of the following Chronic lung disease: Asthma or emphysema or COPD: Yes Chronic Lung Disease Comment: History of having a mass on the lung Cystic Fibrosis: No Diabetes: Yes Diabetes Comment: Diabetes type 2 High Blood Pressure: No Cardiovascular Disease: No Chronic Kidney Disease: No Chronic Liver Disease: No Chronic blood disorder like Sickle Cell Disease: No Weak immune system due to disease or medication: No Neurologic condition that limits movement: No Developmental delay - Moderate to Severe: No Recent (within past 2 weeks) or current : No Morbid Obesity (>100 pounds over ideal weight): No Obesity Comment: Height 5 feet 3 inches weight 214 pounds - Objective Temperature: 98.8 F Pulse Rate: 100 Respiratory Rate: 22 Blood Pressure: 116/86 O2 Sat by Pulse Oximetry: 97 Objective: Given above, testing performed: If Testing Performed: Test Specimen Type Sent to General - General Information source: Patient Notes: here at [facility] today for COVID testing. Seen at [facility] PCP in [place]. Patient has had cough since february. Not taking medications and were treating for allergies. Patient feels symptoms worse and office recommends COVID testing before next steps. Patient has now laryngitis, along with cough fever, Reports has wheezing and coughs makes it better. Feels chest is tight sometimes. Currently smokes 1/2 pack per day. Denies sore throat just scratchy from cough. States has 4 children at home and they are starting to have a cough too. 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 HEAD: Atraumatic, normocephalic. EYES: sclera anicteric, conjunctiva are normal. ENT: nares patent. Moist mucous membranes. NECK: Normal range of motion, supple without lymphadenopathy LUNGS: CTAB and equal. No wheezes rales or rhonchi. faint expiratory wheeze posterior cleared with cough. HEART: Regular rate and rhythm without murmurs ABDOMEN: Soft, nontender, normal bowel sounds, no guarding. EXTREMITIES: No cyanosis. NEUROLOGICAL: Normal speech. PSYCH: Normal mood, normal affect. SKIN: Warm, Dry, normal turgor, no rashes or lesions noted Diagnostic Results Laboratory Results: Patient informed of negative rapid strep and negative rapid flu results. pending strep culture pending cover testing results. Patient provided instructions regarding COVID to include: As a person under investigation for Covid 19, the [place] department of Health and Human Services, division of public health advises you to adhere to the following guidance until your test results are reported to you. If your test result is positive, you will receive additional information from your provider and your local health department at that time. Remain at home until you are cleared by the health provider or public health authorities. Keep a log of visitors to your home, notify any visitors to your home of your isolation status. If you plan to move to a new address or leave the county, notify the local health department in your County. Call your doctor or seek care if you have an urgent medical need. Before seeking medical care, call ahead to get instructions from the provider before arriving at the medical office clinic or hospital. Notify them that you are being tested for the virus that causes Covid 19 so that arrangements can be made, as necessary, to prevent transmission to others in the healthcare setting. Next, notify the local health department in your county. If a medical emergency arises and you need to call 911, inform the first responders that you are being tested for the virus that causes Covid 19. Next, notify the local health department in your county. Patient Education/Counseling Counseling/Education: Patient presents with upper respiratory symptoms worrisome for possible Covid 19. Patient does not have emergency worring symptoms such as difficulty breathing, shortness of breath, chest pain, pressure, confusion or cyanosis. Patient appears suitable for discharge. Patient instructed to follow up with PCP in [place]. TO ED for persistent or worsening symptoms. Patient's vital signs are stable and patient is nontoxic in appearance. Good return precautions have been discussed with patient, patient verbalized understanding and is agreeable with discharge plan of care at this time. [facility] Discharge - Discharge Clinical Impression: COVID - 19 SCREENING Condition: Stable Disposition: Home; Selfcare
[2020-03-26 13:44] VITALS: BP 116/86
[2020-03-26 15:33] LABS: A TYPE INFLUENZA AG NEGATIVE (NEGATIVE); B INFLUENZA AG NEGATIVE (NEGATIVE)
== END ==
LOC: RDC 12:11
PROVIDERS: ATTEND Nurse Practitioner Family
DX: Z20.828 Contact with and (suspected) exposure to other viral communicable diseases (principal); J04.0 Acute laryngitis; R06.2 Wheezing; R50.9 Fever, unspecified; R05 Cough; R06.02 Shortness of breath; R09.89 Other specified symptoms and signs involving the circulatory and respiratory systems; M79.10 Myalgia, unspecified site; R19.7 Diarrhea, unspecified; E11.9 Type 2 diabetes mellitus without complications; F17.210 Nicotine dependence, cigarettes, uncomplicated
CPT/HCPCS: 87070; 87635; 87804; 87880; 99211